=== PATIENT | female | born 1965 | race Caucasian/White ===

== ENCOUNTER 2017-03-21 16:48 | Emergency (ER) | payer BC, OTHER ==
[2017-03-21 16:55] VITALS: BP 115/73
--- NOTE | 2017-03-21 18:13 | RAD ---
Indication: Right rib injury. 3 views of the right ribs and a PA view of the chest demonstrates no fracture. No pneumothorax is noted on chest x-ray. Heart and mediastinal are unremarkable. IMPRESSION: No fracture of the right ribs is noted. No pneumothorax is noted.
[2017-03-21] MEDS ORDERED: HYDROcodone/ACETAMIN 5-325 MG* 1 TAB PO ONE (18:23)
--- NOTE | 2017-03-21 18:34 | UC ---
Respiratory Complaint HPI - HPI Summary HPI Summary: fell down stairs one week ago has continued right rib pain - History of Current Complaint Chief Complaint: UCUpperExtremity Stated Complaint: RIB INJURY FROM FALL Time Seen by Provider: 03/21/17 16:57 Hx Obtained From: Patient ?: No Onset/Duration: Sudden Onset, Lasting Weeks - 1, Still Present Timing: Constant Severity Initially: Moderate Severity Currently: Moderate Aggravating Factors: Nothing Alleviating Factors: Nothing Associated Signs And Symptoms: Positive: Negative - Allergies/Home Medications Allergies/Adverse Reactions: Allergies Allergy/AdvReac Type Severity Reaction Status Date / Time Ciprofloxacin [From Cipro] Allergy Unknown Verified 02/01/17 15:04 Reaction Details Nitrofurantoin Allergy Unknown Verified 02/01/17 15:04 [From Macrobid] Reaction Details Vecuronium [From Norcuron] Allergy Unknown Verified 02/01/17 15:04 Reaction Details PMH/Surg Hx/FS Hx/Imm Hx Previously Healthy: No Psychological History: Depression - Surgical History Surgical History: Yes Surgery Procedure, Year, and Place: RT LEG, BREAST, T&A, BLADDER - Family History Known Family History: Positive: None - Social History Occupation: Employed Full-time Lives: With Family Alcohol Use: Occasionally Substance Use Type: None Smoking Status (MU): Never Smoked Tobacco Review of Systems Constitutional: Negative Skin: Negative Eyes: Negative ENT: Negative Respiratory: Negative Cardiovascular: Negative Gastrointestinal: Negative Genitourinary: Negative Motor: Negative Neurovascular: Negative Musculoskeletal: Arthralgia - right ribs Neurological: Negative Psychological: Negative All Other Systems Reviewed And Are Negative: Yes Physical Exam Triage Information Reviewed: Yes Appearance: Well-Nourished, Ill-Appearing, Pain Distress - mild Vital Signs: Initial Vital Signs Temp 99.0 F 03/21/17 16:52 Pulse 104 03/21/17 16:52 Resp 18 03/21/17 16:52 BP 115/73 03/21/17 16:52 Pulse Ox 98 03/21/17 16:52 Vital Signs Reviewed: Yes Eye Exam: Normal Eyes: Positive: Conjunctiva Clear ENT Exam: Normal ENT: Positive: Normal ENT inspection, Hearing grossly normal, Pharynx normal, TMs normal. Negative: Nasal congestion, Nasal drainage, Trismus, Muffled/ hoarse voice Dental Exam: Normal Neck exam: Normal Neck: Positive: Supple, Nontender Respiratory Exam: Normal Respiratory: Positive: Lungs clear, Normal breath sounds, No respiratory distress, No accessory muscle use, Other: - right ribs tender to touch---mid axillar area. Negative: Chest non-tender Cardiovascular Exam: Normal Cardiovascular: Positive: RRR, No Murmur, Pulses Normal, Brisk Capillary Refill Abdominal Exam: Normal Abdomen Description: Positive: Nontender, No Organomegaly, Soft Bowel Sounds: Positive: Present Musculoskeletal Exam: Normal Musculoskeletal: Positive: Strength Intact, ROM Intact, No Edema Neurological Exam: Normal Neurological: Positive: Alert, Muscle Tone Normal Psychological Exam: Normal Skin Exam: Normal UC Diagnostic Evaluation - Laboratory O2 Sat by Pulse Oximetry: 98 - Radiology Xray Interpretation: No Acute Changes Radiology Interpretation Completed By: Radiologist Respiratory Course/Dx - Course Course Of Treatment: warm packs ibuprofen, hydrocodone, gentle exercising - Differential Dx/Diagnosis Differential Diagnosis/HQI/PQRI: Lower Resp Infection, Other - rib contusion, rib fracture Provider Diagnoses: Right rib contusion Discharge - Discharge Plan Condition: Stable Disposition: HOME Prescriptions: Hydrocodone-Acetaminophen [Hydrocodone/Acetaminophen 5-325 mg] 1 - 2 tab PO QID PRN #20 tab MDD 6 PRN Reason: Pain Patient Education Materials: Ibuprofen (By mouth), Rib Contusion (ED), Warm Compress or Soak (ED) Forms: *Work Release Referrals: Arleen Carson MD [Primary Care Provider] - 5 Days
== END 2017-03-21 18:43 | disposition home or self-care (01) ==
LOC: UCEAST 16:48
DX: S20.211A Contusion of right front wall of thorax, initial encounter (principal); W10.9XXA Fall (on) (from) unspecified stairs and steps, initial encounter; Y93.9 Activity, unspecified; Y92.9 Unspecified place or not applicable; Z88.1 Allergy status to other antibiotic agents; F32.9 Major depressive disorder, single episode, unspecified
CPT/HCPCS: 99212; G0463

== ENCOUNTER 2021-05-15 18:47 | Observation (INO) ==
[2021-05-15] MEDS ORDERED: Lactated Ringers 1000 ml BAG IV.FLUID IV ONE (19:33)
[2021-05-15] MEDS ORDERED: cefTRIAXone 1 gm/50 mL NS BAG 1 GM/50 ML BAG IV ONE ×2 (19:55→22:18)
[2021-05-15 20:05] LABS: Hematocrit 39 % (35-47); Hemoglobin 13.3 g/dL (12.0-16.0); Mean Corpuscular HGB Conc 35 g/dL (31-36); Mean Corpuscular Hemoglobin 33 pg (27-31); Mean Corpuscular Volume 97 fL (80-97); Mean Platelet Volume 6.6 fL (7.4-10.4); Platelet Count 309 10^3/uL (150-450); Red Cell Distribution Width 13 % (10-15); White Blood Count 16.3 10^3/uL (3.5-10.8)
[2021-05-15] MEDS ORDERED: Morphine 4 MG/ML VIAL (1 ml) IV ONE (20:09)
[2021-05-15] MEDS ORDERED: Ondansetron 4 mg VIAL 2 MG/ML 2 ml VIAL IV ONE (20:09)
[2021-05-15 20:18] LABS: Activated Partial Thrombo Time 33.7 seconds (26.0-38.0); INR 1.29 (0.86-1.15)
[2021-05-15 20:20] LABS: Urine Appearance Cloudy; Urine Bilirubin Negative (Negative); Urine Blood 1+ (Negative); Urine Color Yellow; Urine Glucose Negative (Negative); Urine Ketones 2+ (Negative); Urine Nitrite Negative (Negative); Urine Protein 2+(100 mg/dL) (Negative); Urine Specific Gravity 1.013 (1.002-1.030); Urine Urobilinogen Positive (Negative)
[2021-05-15 20:22] LABS: Albumin 3.7 g/dL (3.2-5.2); Albumin/Globulin Ratio 1.2 (1-3); C Reactive Protein 257.19 mg/L (<8.01); Calcium 8.6 mg/dL (8.6-10.3); Globulin 3.1 g/dL (2-4); Potassium 3.4 mmol/L (3.5-5.0); Total Bilirubin 0.9 mg/dL (0.2-1.0); Total Protein 6.8 g/dL (6.4-8.9)
[2021-05-15 20:23] LABS: Troponin I 0.01 ng/mL (<0.03)
[2021-05-15 20:32] LABS: Urine Bacteria 1+ (Absent); Urine Red Blood Cell Absent (Absent); Urine Renal Epithelial Cells Present (Absent); Urine Squamous Epithelial Cell Present (Absent); Urine White Blood Cell 3+(>20/hpf) (Absent)
[2021-05-15 20:40] LABS: ABS Lymphocytes 0.6 10^3/ul (1.0-4.8); ABS Neutrophils 13.7 10^3/ul (1.5-7.7); Lymphocyte % 3.6 %
[2021-05-15] MEDS ORDERED: Lactated Ringers 1000 ml BAG 1,000 ML IV SCH (21:00)
[2021-05-15] MEDS ORDERED: Gentamicin ADULT 40 MG/ML VIAL (2 ML VIAL = 80 MG) IVPB ONE (22:18)
[2021-05-15] MEDS ORDERED: GENTAMICIN ADULT IVPB ONE (23:45)
[2021-05-15] MEDS ORDERED: NS 0.9% IVPB ONE (23:45)
[2021-05-15] MEDS ORDERED: NS 0.9% 100 ml BAG 100 ML ONE (23:58)
[2021-05-16] LABS: Rapid COVID-19 Molecular Undetected (Undetected)
[2021-05-16] MEDS ORDERED: Morphine 4 MG/ML VIAL (1 ml) IV ONE (11:28)
[2021-05-16] MEDS: Lactated Ringers 1000 ml BAG 1,000 ML IV SCH (11:53)
[2021-05-16] MEDS ORDERED: Ondansetron 4 mg VIAL 2 MG/ML 2 ml VIAL IV ONE (17:09)
[2021-05-16] MEDS ORDERED: Heparin 5000 UNITS/ML 1 mL VIAL SUBCUT ONE (19:45)
[2021-05-16] MEDS ORDERED: cefTRIAXone 2 GM ADDV.VIAL 2 GM in NS 0.9% 100 ml BAG 100 ML IVPB ONE (20:30)
[2021-05-16] MEDS: Ondansetron 4 mg VIAL 2 MG/ML 2 ml VIAL IV PRN (21:53)
[2021-05-17 05:28] LABS: Calcium 7.7 mg/dL (8.6-10.3); Potassium 3.6 mmol/L (3.5-5.0)
[2021-05-17 06:12] LABS: Rapid COVID-19 Molecular Undetected (Undetected)
[2021-05-17 07:44] LABS: Hematocrit 34 % (35-47); Hemoglobin 11.6 g/dL (12.0-16.0); Mean Corpuscular HGB Conc 34 g/dL (31-36); Mean Corpuscular Hemoglobin 34 pg (27-31); Mean Corpuscular Volume 98 fL (80-97); Mean Platelet Volume 6.6 fL (7.4-10.4); Platelet Count 269 10^3/uL (150-450); Red Blood Count 3.45 10^6 /uL (3.70-4.87); Red Cell Distribution Width 13 % (10-15); White Blood Count 11.9 10^3/uL (3.5-10.8)
[2021-05-17 07:55] LABS: ABS Eosinophils 0.1 10^3/ul (0-0.6); ABS Lymphocytes 0.9 10^3/ul (1.0-4.8); ABS Monocytes 1.8 10^3/ul (0-0.8); ABS Neutrophils 9.1 10^3/ul (1.5-7.7); Eosinophil % 0.7 %; Lymphocyte % 7.5 %
[2021-05-17] MEDS: Ondansetron 4 mg VIAL 2 MG/ML 2 ml VIAL IV PRN (07:58)
[2021-05-17] MEDS ORDERED: Iohexol 180 (CONTRAST) 20 ML SDV IV ONE (09:58)
[2021-05-17] MEDS ORDERED: Gentamicin ADULT 160 MG in NS 0.9% 100 ml BAG 100 ML IVPB ONE ×2 (10:00→22:00)
[2021-05-17] MEDS ORDERED: Propofol 10 MG/ML 20 ML BTL ONE (10:28)
[2021-05-17] MEDS ORDERED: Rocuronium 50 mg VIAL 10 mg/ml 5 ml VIAL (50 mg) ONE (10:28)
[2021-05-17] MEDS ORDERED: Dexamethasone IV 4 MG/ML VIAL 1 ml VIAL ONE (10:28)
[2021-05-17] MEDS ORDERED: Ondansetron 4 mg VIAL 2 MG/ML 2 ml VIAL ONE (10:28)
[2021-05-17] MEDS: Lactated Ringers 1000 ml BAG 1,000 ML IV SCH (11:45)
[2021-05-17] MEDS ORDERED: cefTRIAXone 1 gm/50 mL NS BAG 1 GM/50 ML BAG IVPB SCH (21:00)
[2021-05-18 06:14] LABS: Calcium 7.9 mg/dL (8.6-10.3); Magnesium 1.9 mg/dL (1.9-2.7); Potassium 3.9 mmol/L (3.5-5.0)
[2021-05-18 07:01] VITALS: BP 127/82
[2021-05-18] MEDS: Lactated Ringers 1000 ml BAG 1,000 ML IV SCH (08:40)
[2021-05-18 09:50] LABS: ABS Lymphocytes 0.8 10^3/ul (1.0-4.8); ABS Monocytes 0.7 10^3/ul (0-0.8); ABS Neutrophils 9.5 10^3/ul (1.5-7.7); Eosinophil % 0.1 %; Hematocrit 37 % (35-47); Hemoglobin 12.4 g/dL (12.0-16.0); Lymphocyte % 7.6 %; Mean Corpuscular HGB Conc 34 g/dL (31-36); Mean Corpuscular Hemoglobin 33 pg (27-31); Mean Corpuscular Volume 98 fL (80-97); Platelet Count 326 10^3/uL (150-450); Red Blood Count 3.75 10^6 /uL (3.70-4.87); Red Cell Distribution Width 13 % (10-15); White Blood Count 11.1 10^3/uL (3.5-10.8)
[2021-05-18] MEDS ORDERED: cefTRIAXone 1 gm/50 mL NS BAG 1 GM/50 ML BAG IVPB SCH (12:00)
== END 2021-05-18 14:20 | disposition home or self-care (01) ==
LOC: ED 18:47 → SSU 18:47 → SUATTDRO 05-16 20:32 → SSU 05-16 22:19
PROVIDERS: ADMIT Internal Medicine; ATTEND Internal Medicine